=== PATIENT | female | born 1995 | race Caucasian/White ===

== ENCOUNTER 2022-10-19 20:16 | Observation (INO) | payer OTHER, SELFPAY ==
[2022-10-19 20:30] VITALS: BMI 26.6
--- NOTE | 2022-10-19 20:45 | OBADM ---
This patient, Stacey Mckee, admitted to the OB room [facility] for observation. Patient/family oriented to hospital policies and general routines including ID bracelet, bed and alarms, visiting hours, pain management, procedures, bathroom and other care routines, personal items, smoking policy, room service/diet, and visiting hours. Patient/Family are encouraged to report perceived risks to care and to ask questions if they do not understand what they are told or what they should do.
--- NOTE | 2022-10-19 20:48 | PC.NURSE ---
Dr Baldwin notified that cervix was visible at the vaginal opening. OK to do gentle vaginal exam. Patient needs to make a follow up in the office this week to get fitted for a pessary.
[2022-10-19 21:09] VITALS: BP 130/80; PULSE 92
[2022-10-19 21:15] VITALS: BP 123/79; PULSE 86
--- NOTE | 2022-10-19 21:24 | PC.NURSE ---
Dr Lamar notified of leaking, sve, slight positive on ROM plus, amount of swelling noted on vaginal opening and contractions. Ok to give terb x1 and repeat ROM plus in an hour.
[2022-10-19 21:30] VITALS: BP 120/78; PULSE 93
[2022-10-19] MEDS: TERBUTALINE SULFATE 1 MG/ML VIAL 0.25 MG SUB-Q (21:47)
[2022-10-19] MEDS: WITCH HAZEL 40 PADS 1 PAD TOPICAL (21:47)
[2022-10-19 23:02] VITALS: BP 120/77; PULSE 96
--- NOTE | 2022-10-20 07:43 | PM.OBTRLD ---
OB - Triage/Final Diagnosis Visit Information Date of evaluation: 10/20/22 Reason for evaluation: threatened labor Comments/Additional reasons for admission: I have assessed the risk for this patient, Stacey Herndon Rylee, and determined that she would benefit from observation care. Evaluation Vital signs: Vital Signs - 24 hr 10/19/22 21:09 10/19/22 21:15 10/19/22 21:30 Pulse Rate 92 86 93 Blood Pressure 130/80 123/79 120/78 10/19/22 23:02 Pulse Rate 96 Blood Pressure 120/77
== END 2022-10-19 23:20 | disposition home or self-care (01) ==
PROVIDERS: Admitting Provider Obstetrics & Gynecology; Visit Provider Obstetrics & Gynecology
DX: O47.03 False labor before 37 completed weeks of gestation, third trimester (principal); Z3A.30 30 weeks gestation of pregnancy
CPT/HCPCS: 84112; A9270; G0378; G0379; J3105

== ENCOUNTER 2022-12-09 14:50 | Outpatient (CLI) | payer OTHER, SELFPAY ==
[2022-12-09 15:00] VITALS: BP 128/96; PULSE 101; PULSE 106
[2022-12-09 15:15] VITALS: BP 129/91; PULSE 98
[2022-12-09 15:30] VITALS: BP 130/86; PULSE 94
[2022-12-09 16:10] LABS: Alanine Aminotransferase 15 U/L (6-35); Albumin Level 3.4 g/dL (3.5-5.1); Alkaline Phosphatase 230 U/L (38-126); Anion Gap 7 mmol/L (8-16); Aspartate Amino Transferase 25 U/L (14-36); Bilirubin,Total 0.4 mg/dL (0.2-1.3); Blood Urea Nitrogen 7 mg/dL (7-17); Calcium 8.3 mg/dL (8.4-10.2); Carbon Dioxide 20 mmol/L (22-30); Chloride 106 mmol/L (98-107); Estimated Glomerular Filt Rate > 60; Glucose 91 mg/dL (65-110); Potassium 3.6 mmol/L (3.4-5.0); Sodium 133 mmol/L (137-145); Uric Acid 3.6 mg/dL (2.5-7.5)
[2022-12-09 16:17] LABS: Basophils Percent Auto 0.4 % (0.2-1.2); Eosinophils Absolute Auto 0.1 K/mm3 (0-0.3); Eosinophils Percent Auto 0.7 % (0-4.4); Hematocrit 31.4 % (37.0-47.0); Hemoglobin 9.7 g/dL (12.0-15.0); Immature Granulocyte Absolute 0.04 K/mm3 (0.00-0.031); Immature Granulocyte Percent A 0.5 % (0-0.5); Lymphocytes Absolute Auto 1.33 K/mm3 (0.9-3.2); Lymphocytes Percent Auto 17.9 % (18.3-44.2); Mean Corpuscular HGB Conc 30.9 g/dl (32-36); Mean Corpuscular Hemoglobin 25.3 pg (26-34); Mean Platelet Volume 10.8 fl (7.4-10.4); Monocytes Absolute Auto 0.6 K/mm3 (0.1-0.6); Monocytes Percent Auto 7.5 % (2.6-8.5); Neutrophils Absolute Auto 5.4 K/mm3 (1.3-6.7); Platelet Count Result 239 k/mm3 (150-375); Red Blood Count 3.83 M/mm3 (4.2-5.4); Red Cell Distribution Width 14.3 % (11.5-14.5); White Blood Count 7.5 K/mm3 (4.5-10.0)
[2022-12-09 16:23] LABS: Appearance Urine Clear (Clear); Bacteria Urine None Seen /hpf; Bilirubin Urine Negative (Negative); Blood Urine Negative (Negative); Color Urine Yellow (Yellow); Glucose Urine UA Negative (Negative); Ketones Urine Negative (Negative); Leukocyte Esterase Ur Negative LEU/UL (NEGATIVE); Nitrate Urine Negative (Negative); Non Pathogenic Casts 0-2; Protein Urine Trace mg/dL (Negative); RBC Urine 0-2 /hpf (0-2); Specific Grav Ur 1.013 (1.001-1.035); Squamous Epithelial Cell Urine Few /hpf (Few); WBC Urine 0-5 /hpf (0-3); pH Urine 6.5 (5.0-9.0)
--- NOTE | 2022-12-09 16:25 | PC.NURSE ---
called Dr. Ced Roldan reported BP and NST, PIH lab result. Discharge order received
[2022-12-09 16:36] LABS: Add Urine Microscopic? YES
[2022-12-09 16:37] VITALS: BP 130/86; PULSE 94
[2022-12-09 17:18] LABS: Creatinine Urine 97.5 mg/dL; Total Protein Urine Random 20 mg/dL; Ur Ttl Prot Creatinine Ratio 0.21 mg/mg (0-0.20)
== END 2022-12-09 16:30 | disposition home or self-care (01) ==
LOC: ANHOBOP 14:53 → ANHOBPP 14:53
PROVIDERS: Visit Provider Obstetrics & Gynecology
DX: O13.9 Gestational [pregnancy-induced] hypertension without significant proteinuria, unspecified trimester (principal); Z3A.00 Weeks of gestation of pregnancy not specified
CPT/HCPCS: 36415; 59025; 80053; 81001; 82570; 84156; 84550; 85025; 87086; 99199

== ENCOUNTER 2022-12-16 04:44 | Inpatient (IN) | payer OTHER, SELFPAY ==
[2022-12-16] VITALS (140 sets, daily range): BP systolic 89–151; BP diastolic 51–102; PULSE 69–129; RESP 16; TEMP 36.1–37.2; O2SAT 88–100; BMI 27.3
--- NOTE | 2022-12-16 05:07 | PM.IMHP ---
H&P: HPI History of Present Illness Date/Time: 12/16/22 05:07 Chief Complaint: Labor at term Narrative: this is a 27-year-old 1 para 0 whose last menstrual period was 03/20/2022, EDC is 12/25/2022, confirmed by 9 week ultrasound who presents at term in active labor. Blood pressures have been elevated a. She is negative for group B strep. PIH labs will be drawn PMFSH Family History Family History Mother Diabetes mellitus Social History Social History Substance use: never Spiritual care concerns: No Meds Home Medications and Allergies Home Medications Medication Instructions Recorded Confirmed Type vit no.95-ferrous 1 tablet PO DAILY 12/10/22 12/10/22 History fumarate 28 mg-folic acid 800 mcg tablet () Allergies Allergy/AdvReac Type Severity Reaction Status Date / Time tramadol AdvReac Intermediate Hallucinati Verified 10/19/22 21:35 ng Exam Const: General: cooperative, healthy appearing, comfortable and well groomed Nutritional Appearance: average body habitus Orientation/consciousness: oriented to person, oriented to place and oriented to time HENMT: Head: normal to inspection Resp: Effort & Inspection: normal respiratory effort Cardio: Rate: regular rate Rhythm: regular rhythm Heart sounds: S1 normal heart sound present and S2 normal heart sound present GI: Inspection: normal to inspection ( gravid soft uterus) Auscultation: normal bowel sounds : External Female Exam: normal external appearance Speculum Exam - Vagina: normal appearance of the vagina Speculum Exam - Cervix: normal appearance of the cervix ( cervix 2.5/75/1. AROM clear. FHTs reassuring) Assessment and Plan Assessment and plan (1) Term : Code(s): Z34.90 - Encounter for supervision of normal , unspecified, unspecified trimester Status: Acute (2) Gestational hypertension: Code(s): O13.9 - Gestational [-induced] hypertension without significant proteinuria, unspecified trimester Status: Acute Plan spontaneous vaginal delivery is expected. Would get PIH labs. She is an epidural candidate.
--- NOTE | 2022-12-16 05:24 | LDADM ---
This patient, Stacey Mckee, was admitted to Labor/Delivery/Recovery 106 on 12/16/22 at 04:44. Plans for labor, pain management and were discussed with patient. Patient/family oriented to hospital policies and general routines including ID bracelet, bed and alarms, visiting hours, pain management, procedures, bathroom and other care routines, personal items, smoking policy, room service/diet and guest tray routines, infant security routines, and visiting hours. Patient/Family are encouraged to report perceived risks to care and to ask questions if they do not understand what they are told or what they should do. See OBIX for further documentation.
[2022-12-16 05:27] LABS: Basophils Absolute Auto 0.1 K/mm3 (0.0-0.1); Basophils Percent Auto 0.6 % (0.2-1.2); Eosinophils Absolute Auto 0.1 K/mm3 (0-0.3); Eosinophils Percent Auto 0.8 % (0-4.4); Hemoglobin 10.1 g/dL (12.0-15.0); Immature Granulocyte Absolute 0.03 K/mm3 (0.00-0.031); Immature Granulocyte Percent A 0.3 % (0-0.5); Lymphocytes Percent Auto 18.9 % (18.3-44.2); Mean Corpuscular HGB Conc 30.6 g/dl (32-36); Mean Corpuscular Hemoglobin 24.8 pg (26-34); Mean Corpuscular Volume 80.9 fl (80-100); Mean Platelet Volume 10.6 fl (7.4-10.4); Monocytes Absolute Auto 0.6 K/mm3 (0.1-0.6); Monocytes Percent Auto 6.2 % (2.6-8.5); Neutrophils Absolute Auto 6.6 K/mm3 (1.3-6.7); Neutrophils Percent Auto 73.2 % (45.5-73.1); Platelet Count Result 236 k/mm3 (150-375); Red Blood Count 4.08 M/mm3 (4.2-5.4); Red Cell Distribution Width 14.3 % (11.5-14.5)
[2022-12-16 05:37] LABS: Uric Acid 3.7 mg/dL (2.5-7.5)
[2022-12-16 05:43] LABS: Alanine Aminotransferase 15 U/L (6-35); Albumin Level 3.3 g/dL (3.5-5.1); Alkaline Phosphatase 220 U/L (38-126); Anion Gap 7 mmol/L (8-16); Aspartate Amino Transferase 24 U/L (14-36); Bilirubin,Total 0.3 mg/dL (0.2-1.3); Blood Urea Nitrogen 3 mg/dL (7-17); Carbon Dioxide 21 mmol/L (22-30); Chloride 107 mmol/L (98-107); Estimated CRCL calculation 131 ml/min; Estimated Glomerular Filt Rate > 60; Glucose 100 mg/dL (65-110); Potassium 3.5 mmol/L (3.4-5.0); Sodium 135 mmol/L (137-145)
--- NOTE | 2022-12-16 09:08 | WPDANESEPP ---
Anes - Eval Pre Procedure Procedure: labor epidural Date/Time: 12/16/22 09:08 Preop Diagnosis: labor pain Pre Op Diagnosis: contractions Patient Data Age: 27 Gender: F Height: 1.6 m Weight: 70 kg Last Vital Signs Temp 36.1 C L 12/16/22 06:56 Pulse 93 12/16/22 09:00 BP 129/84 12/16/22 09:00 Pulse Ox 100 12/16/22 09:06 O2 Del Method Room Air 12/16/22 05:23 Allergies Allergy/AdvReac Type Severity Reaction Status Date / Time tramadol AdvReac Intermediate Hallucinati Verified 12/16/22 05:30 ng Home Medications Medication Instructions Recorded Confirmed Type vit no.95-ferrous 1 tablet PO DAILY 12/10/22 12/16/22 History fumarate 28 mg-folic acid 800 mcg tablet () Laboratory Tests 12/16/22 05:17 WBC 9.0 K/mm3 (4.5-10.0) RBC 4.08 L M/mm3 (4.2-5.4) Hgb 10.1 L g/dL (12.0-15.0) Hct 33.0 L % (37.0-47.0) MCV 80.9 fl (80-100) MCH 24.8 L pg (26-34) MCHC 30.6 L g/dl (32-36) RDW 14.3 % (11.5-14.5) Plt Count 236 k/mm3 (150-375) MPV 10.6 H fl (7.4-10.4) Immature Gran % (Auto) 0.3 % (0-0.5) Neut % (Auto) 73.2 H % (45.5-73.1) Lymph % (Auto) 18.9 % (18.3-44.2) [place] % (Auto) 6.2 % (2.6-8.5) Eos % (Auto) 0.8 % (0-4.4) Baso % (Auto) 0.6 % (0.2-1.2) Lymph # (Auto) 1.70 K/mm3 (0.9-3.2) [place] # (Auto) 0.6 K/mm3 (0.1-0.6) Eos # (Auto) 0.1 K/mm3 (0-0.3) Baso # (Auto) 0.1 K/mm3 (0.0-0.1) Abs Immat Gran (auto) 0.03 K/mm3 (0.00-0.031) Absolute Neuts (auto) 6.6 K/mm3 (1.3-6.7) Absolute Nucleated RBC 0.0 K/mm3 (0.0-0.012) Nucleated RBC % 0.0 % (0.0-0.2) Sodium 135 L mmol/L (137-145) Potassium 3.5 mmol/L (3.4-5.0) Chloride 107 mmol/L (98-107) Carbon Dioxide 21 L mmol/L (22-30) Anion Gap 7 L mmol/L (8-16) BUN 3 L mg/dL (7-17) Creatinine 0.50 L mg/dL (0.7-1.0) Estim Creat Clear Calc 131 ml/min Estimated GFR > 60 (59 - ) Glucose 100 mg/dL (65-110) Uric Acid 3.7 mg/dL (2.5-7.5) Calcium 9.0 mg/dL (8.4-10.2) Total Bilirubin 0.3 mg/dL (0.2-1.3) AST 24 U/L (14-36) ALT 15 U/L (6-35) Alkaline Phosphatase 220 H U/L (38-126) Total Protein 6.0 L g/dL (6.3-8.2) Albumin 3.3 L g/dL (3.5-5.1) RPR Pending Blood Type O Positive Antibody Screen Negative : gestational age (ANN 12/25/22) Patient hx anesthesia problems: none Family hx anesthesia problems: none Results Review: All pre-operative results and documents have been reviewed as part of the pre-operative evaluation. [facility] Family History Family History Mother Diabetes mellitus Social History Social History Smoking status: Never smoker Substance use: never Lack of Transportation: No Lack of Food: Never True Current Housing: I Have Housing Concerned About Future Housing: No Difficulty Paying Gas/Electric Bills: No Difficulty Paying for Meds: No Currently Unemployed: No Education: Associate Degree Difficulty w/ Childcare or Family Care: No Spiritual care concerns: No Exam Day of Procedure 12/16/22 09:08
[2022-12-16] MEDS: OXYTOCIN 30 UNITS/NS 500 ML 30 UNITS/500 ML BAG IV CONT (09:11)
[2022-12-16] MEDS: LACTATED RINGERS 1,000 ML 125 ML IV CONT ×2 (09:11→12:46)
[2022-12-16 10:57] LABS: Rapid Plasma Reagin Non-Reactive (NonReactive)
[2022-12-16] MEDS: fentaNYL CITRATE INJ (*CRX) 100 MCG/2 ML VIAL 50 MCG IV PUSH (11:09)
[2022-12-16] MEDS: LACTATED RINGERS 1,000 ML 999 ML IV CONT (11:29)
--- NOTE | 2022-12-16 12:02 | PM.OBPNLAB ---
Pain Control Date/time seen: 12/16/22 12:02 Pain control: tolerating well and epidural Pelvic Exam Dilation (cm): 3
--- NOTE | 2022-12-16 15:43 | PM.OBPRVD ---
OB - Delivery Note Procedure Delivery date: 12/16/22 Events: Gestational Hypertension Induction method: None Delivery augmentation: Rupture of Membranes and Pitocin Delivery monitor: External FHT Route of delivery: Laceration Description: Perineal - 2nd Degree Delivery repair: vicryl Specimen: No Quantitative Blood Loss (ml): 160 Anesthesia type: Epidural Disposition: Floor Baby Date of : 12/16/22 Time of : 15:25 Weeks of gestation at delivery: 38 Infant gender: Male Weight (pounds): 8 Weight (ounces): 13 presentation: vertex position: Right Occiput Anterior Placenta delivery description: Spontaneous Cord Vessel Description: 3 Vessels and Delayed Cord Clamping score one minute: 9 score five minutes: 9
--- NOTE | 2022-12-16 16:20 | PM.DS ---
DS: Admitting Diagnosis Discharge Date 12/18/2022 Admitting Diagnosis Term /gestational hypertension DS: Discharge Diagnosis Discharge Diagnosis (1) Gestational hypertension: Code(s): O13.9 - Gestational [-induced] hypertension without significant proteinuria, unspecified trimester Status: Acute (2) Term : Code(s): Z34.90 - Encounter for supervision of normal , unspecified, unspecified trimester Status: Acute DS: Summary Hospital Course Reason for hospitalization: Patient was admitted in active labor 12/16/2022. Hospital Course: Patient underwent spontaneous vaginal delivery on 12/16/2022. Her hospital course was unremarkable thereafter. She was ambulating eating regular diet voiding without difficulty breast-feeding, and generally without complaints. Time Spent with Patient Time attestation: Total time spent providing and/or coordinating discharge services: Exam Const: General: cooperative, healthy appearing, comfortable and average body habitus Orientation/consciousness: oriented to person, oriented to place and oriented to time HENMT: Head: normal to inspection Chest: Chest palpation & inspection: normal inspection of the chest Resp: Effort & Inspection: normal respiratory effort Cardio: Rate: regular rate Rhythm: regular rhythm Heart sounds: S1 normal heart sound present and S2 normal heart sound present GI: Inspection: normal to inspection (Fundus firm below the umbilicus) DS: Data Data Completed and Pending Labs on day of discharge: Labs from last 24 hours 12/16/22 05:17 WBC 9.0 RBC 4.08 L Hgb 10.1 L Hct 33.0 L MCV 80.9 MCH 24.8 L MCHC 30.6 L RDW 14.3 Plt Count 236 MPV 10.6 H Immature Gran % (Auto) 0.3 Neut % (Auto) 73.2 H Lymph % (Auto) 18.9 [place] % (Auto) 6.2 Eos % (Auto) 0.8 Baso % (Auto) 0.6 Lymph # (Auto) 1.70 [place] # (Auto) 0.6 Eos # (Auto) 0.1 Baso # (Auto) 0.1 Abs Immat Gran (auto) 0.03 Absolute Neuts (auto) 6.6 Absolute Nucleated RBC 0.0 Nucleated RBC % 0.0 Sodium 135 L Potassium 3.5 Chloride 107 Carbon Dioxide 21 L Anion Gap 7 L BUN 3 L Creatinine 0.50 L Estim Creat Clear Calc 131 Estimated GFR > 60 Glucose 100 Uric Acid 3.7 Calcium 9.0 Total Bilirubin 0.3 AST 24 ALT 15 Alkaline Phosphatase 220 H Total Protein 6.0 L Albumin 3.3 L RPR Non-reactive Blood Type O Positive Antibody Screen Negative Discharge Plan Discharge Attending physician on discharge: Scott Abreu Discharging Clinician: Scott Abreu Patient Disposition: Home, Self-Care Activity: may shower and pelvic rest Diet: heart healthy Wound Care Instructions: follow printed instructions Patient Instructions: Antibiotic Form Stand Alone Forms: General Discharge Information Follow-up/Referrals: Scott Abreu MD [Physician] - Discharge Medications: Continued PNV cmb#95-ferrous fumarate-FA [] 28 mg iron- 800 mcg Tablet 1 tablet PO DAILY Date of admission: 12/16/22 04:44 Primary Care Provider: PHYSICIAN NOT ON STAFF,NONSTAFF Admitting Provider: Scott Abreu Attending physician on admission: Scott Abreu Condition: Stable
[2022-12-16] MEDS: OXYTOCIN 30 UNITS/NS 500 ML 30 UNITS/500 ML BAG 125 UNITS IV CONT (16:22)
[2022-12-16] MEDS: IBUPROFEN 600 MG TABLET PO (17:28)
[2022-12-16] MEDS: WITCH HAZEL 40 PADS 1 PAD TOPICAL (18:41)
[2022-12-16] MEDS: BENZOCAINE 20% AER SPR (*SP) 56 GM CAN 1 SPRAY TOPICAL (18:42)
[2022-12-16] MEDS: ACETAMINOPHEN 325 MG TABLET 650 MG PO (22:40)
[2022-12-17] MEDS: IBUPROFEN 600 MG TABLET PO ×3 (01:57→20:38)
[2022-12-17 05:10] LABS: Hematocrit 24.7 % (37.0-47.0); Hemoglobin 7.7 g/dL (12.0-15.0)
--- NOTE | 2022-12-17 05:51 | P.PNOB_ITS ---
OB - PN: Subj Subjective Date/time seen: 12/17/22 05:51 Patient comments: no complaints and pain well controlled baby status: doing well and nursing well OB - PN: Obj Data Labs 12/17/22 04:42 12/16/22 05:17 Labs: Laboratory Results - last 24 hr 12/16/22 12/17/22 05:17 04:42 Hgb 7.7 L Hct 24.7 L RPR Non-reactive Blood Type O Positive Antibody Screen Negative OB - PN A/P Plan day: 1 Plan: routine care Time Spent With Patient Time: Total time spent is greater than 50% in coordination of care (as documented) at patient's floor/unit and/or counseling patient: Time with patient: less than 15 minutes Exam Const: General: cooperative, healthy appearing and comfortable Nutritional Appearance: average body habitus Orientation/consciousness: oriented to person, oriented to place and oriented to time HENMT: Head: normal to inspection Resp: Effort & Inspection: normal respiratory effort Cardio: Rate: regular rate Rhythm: regular rhythm Heart sounds: S1 norm al heart sound present and S2 normal heart sound present GI: Inspection: normal to inspection
[2022-12-17 08:05] VITALS: BP 125/82; PULSE 93; RESP 16; TEMP 36.8; O2SAT 98
[2022-12-17] MEDS: MULTIVIT/MIN/PREN/FOL AC/IRON TABLET 1 TAB PO (08:08)
[2022-12-17] MEDS: DOCUSATE SODIUM 100 MG CAPSULE PO ×2 (08:08→16:10)
[2022-12-17] MEDS: POLYSACCHARIDE IRON COMPLEX 150 MG CAPSULE PO ×2 (08:08→16:09)
[2022-12-17] MEDS: ACETAMINOPHEN 325 MG TABLET 650 MG PO ×2 (08:09→16:09)
--- NOTE | 2022-12-17 11:00 | WPDANESPN ---
Anes - Prog Note Post-Op Date/Time: 12/17/22 11:00 Cardiovascular status: normal Respiratory status: normal Airway patency: baseline Mental status: baseline Post-Op hydration status: normal Vital Signs: Last Vital Signs Temp 36.8 C 12/17/22 08:05 Pulse 93 12/17/22 08:05 Resp 16 12/17/22 08:05 BP 125/82 12/17/22 08:05 Pulse Ox 98 12/17/22 08:05 O2 Del Method Room Air 12/16/22 05:23 Pain Score (VAS): 1 I/O: Intake & Output 12/16/22 12/17/22 12/17/22 23:59 07:59 15:59 Intake Total 2000 Output Total 360 Balance 1640 Laboratory Tests 12/17/22 04:42 12/16/22 05:17 12/17/22 04:42 Hgb 7.7 L Hct 24.7 L Post-procedural complaints: none Patient Feedback: Patient satisfied with anesthetic care.
[2022-12-17 12:47] VITALS: BP 122/77; PULSE 105; RESP 16; TEMP 37.1; O2SAT 99
--- NOTE | 2022-12-17 16:29 | PC.NURSE ---
[id number] Introductions were made, then consulted with patient to assess needs related to . Mother led the conversation with her?plans to feed?her infant and the?experience so far. Resources provided for inpatient and outpatient services with the feeding sheet, mom/baby guide and name written on the white board. Mother voiced understanding of information, mother encouraged to place infant [id number] upright and to stimulate for wakefulness, then the plan is to call for assistance if infant doesn't wake to breastfeed or there's feeding cues visualized. Reported to the primary RN. [id number] Encouraged understanding of the benefits of skin to skin (demonstrating unwrapping and placing upright on her chest), stimulating with massage touch, changing positions to encourage wakefulness, how to watch for early feeding cues, responsive feeding, hand expression, feeding on demand (aiming for 8-12 times in 24 hours, about every 2-3 hours), milk production, building/maintaining a milk supply, duration of feeding, signs of adequate intake/output and how to record on the feeding sheet. Reviewed positioning and ear, shoulder, hip alignment, supporting the breast to facilitate a deep latch, asymmetrical latch (off-center), leading with the chin with a big, open, wide gape and body close to mother. is gassy. Mother and RN assist with removing many burps, however; infant remains sleepy and reluctant to nurse. Mother learned and practiced the skill of hand expression and colostrum was finger fed to the infant. Mother will continue to practice and voiced understanding to call for assistance if doesn't wake to breastfeed, there's pain with latching and to stimulate and watch for feeding cues about every 2 hours encouraging on demand. Reported to the Primary RN.
[2022-12-17 18:55] VITALS: BP 117/77; PULSE 88; RESP 16; TEMP 36.3
[2022-12-18] MEDS: ACETAMINOPHEN 325 MG TABLET 650 MG PO ×2 (00:13→09:27)
[2022-12-18] MEDS: IBUPROFEN 600 MG TABLET PO (04:52)
--- NOTE | 2022-12-18 07:26 | PM.OBPNVD ---
OB - PN: Subj Subjective Date/time seen: 12/18/22 07:26 Patient comments: no complaints and pain well controlled baby status: doing well and nursing well OB - PN: Obj Data Labs 12/17/22 04:42 12/16/22 05:17 OB - PN A/P Plan day: 2 Plan: routine care, discharge home and follow up 6 weeks Time Spent With Patient Time: Total time spent is greater than 50% in coordination of care (as documented) at patient's floor/unit and/or counseling patient: Exam Const: General: cooperative, healthy appearing, comfortable and average body habitus Orientation/consciousness: oriented to person, oriented to place and oriented to time HENMT: Head: normal to inspection Resp: Effort & Inspection: normal respiratory effort Cardio: Rate: regular rate Rhythm: regular rhythm Heart sounds: S1 normal heart sound present and S2 normal heart sound present GI: Inspection: normal to inspection ( fundus firm below the umbilicus)
[2022-12-18 09:00] VITALS: BP 125/80; PULSE 93; RESP 16; TEMP 37.3; O2SAT 100
[2022-12-18] MEDS: MULTIVIT/MIN/PREN/FOL AC/IRON TABLET 1 TAB PO (09:26)
[2022-12-18] MEDS: POLYSACCHARIDE IRON COMPLEX 150 MG CAPSULE PO (09:27)
[2022-12-18] MEDS: DOCUSATE SODIUM 100 MG CAPSULE PO (09:27)
--- NOTE | 2022-12-18 10:59 | PC.NURSE ---
Patient viewed the discharge video Mother & Baby Care, The First Two Weeks online. Patient was given the opportunity and encouraged to ask questions. Patient verbalized understanding of information shared and has been given the mother/baby guide for home reference.
[2022-12-21 11:27] VITALS: BP 133/91; PULSE 78; RESP 20; TEMP 37.1; O2SAT 100
== END 2022-12-18 12:09 | disposition home or self-care (01) | DRG 560 ==
LOC: ANHLDR 16:23 → ANHOB2 18:57
PROVIDERS: Admitting Provider Obstetrics & Gynecology; Visit Provider Obstetrics & Gynecology
DX: O13.4 Gestational [pregnancy-induced] hypertension without significant proteinuria, complicating childbirth (principal); O70.1 Second degree perineal laceration during delivery; Z37.0 Single live birth; Z3A.38 38 weeks gestation of pregnancy
CPT/HCPCS: 36415; 80053; 84550; 85014; 85018; 85025; 86592; 86850; 86900; 86901; A9270; J2590; J2795; J3010; J7120